=== PATIENT | male | born 1955 ===

== ENCOUNTER 2022-10-10 07:24 | Emergency (ER) | payer MEDICARE ==
[~2022-10-10] VITALS: Ht 172.7 cm; Wt 61.2 kg
[~2022-10-10 07:24] MED LIST: CARVEDILOL6.25 MG PO; LEVE500 PO; LISI5 PO; PANTOPRAZOLE SO40 M2 PO
[2022-10-10] MEDS ORDERED: LEVETIRACETAM1000 M1 PO (11:34)
[2022-10-10] MEDS ORDERED: PRINIVIL5 MG PO (11:34)
[2022-10-10 12:00] VITALS: BP 132/81
== END 2022-10-10 12:01 | disposition home or self-care (01) ==
LOC: ER 07:24
DX: R56.9 Unspecified convulsions (principal); Z76.0 Encounter for issue of repeat prescription; Z79.899 Other long term (current) drug therapy; I25.2 Old myocardial infarction
CPT/HCPCS: 82947; 99285; A9270